=== PATIENT | female | born 1935 | race Caucasian/White ===

== ENCOUNTER 2017-03-25 21:19 | Inpatient (IN) | payer OTHER, MEDICAID ==
[~2017-03-25] VITALS: Ht 157.5 cm; Wt 64.0 kg
[~2017-03-25 21:19] MED LIST: ARTHRITIS PAIN650 M3 PO; BENAZEPRIL HCL40 MG PO; CARDIZEM CD120 MG PO; CEFUROXIME250 MG PO; CEFUROXIME500 MG PO; COREG25 MG PO; COUMADIN 2 MG TA2 M1 PO; D3 + K2 DOTS 11 EACH PO; DIFLUCAN200 MG PO; DUONEB 2.5-0.5 M3 ML INH; FLAGYL500 MG PO; FLORASTOR250 MG PO; HYDROCODONE-AP1 EAC6 PO; LEVSIN0.125 MG PO; LIDODERM1 EACH TRANSDERM; LISINOPRIL2.5 M1 PO; MOBIC15 MG PO; NYSTATIN PO; PACERONE200 MG PO; PLAVIX 75 MG TA75 M1 PO; PREDNISONE 10 M10 MG PO; PROTONIX40 M1 PO; TOPROL XL25 MG PO; VANCO1GM PO
[2017-03-25 21:27] VITALS: BP 155/87
[2017-03-25] MEDS ORDERED: CARTIA XT120 M1 PO (21:38)
[2017-03-25] MEDS ORDERED: HYDROCODON-ACE1 EAC7 PO (21:39)
[2017-03-25 21:53] LABS: ABSOLUTE BASOPHILS 0.1 thou/uL (0.0-0.2); ABSOLUTE EOSINOPHILS 0.1 thou/uL (0.0-0.7); ABSOLUTE LYMPHOCYTES 1.3 thou/uL (0.8-5.3); BASOPHILS 0.7 %; EOSINOPHILS 1.3 %
[2017-03-25 21:55] LABS: ABSOLUTE MONOCYTES 0.7 thou/uL (0.0-1.2); ABSOLUTE NEUTROPHILS 7.9 thou/uL (1.6-8.1); HEMATOCRIT 35.5 % (37.0-47.0); HEMOGLOBIN 11.5 gm/dL (12.0-15.0); LYMPHOCYTES 12.4 %; MCH 28.1 pg (26.0-34.0); MCHC 32.5 g/dL (28.0-37.0); MCV 86.3 fL (80.0-100.0); MONOCYTES 6.8 %; MPV 6.9 fl. (7.2-11.1); NUCLEATED RBCS 0 /100WBC; PLATELET COUNT* 594 thou/uL (150-400); POLYS 78.8 %; RBC 4.11 mil/uL (4.20-5.00); RDW-CV 14.5 % (10.5-14.5); WBC 10.1 thou/uL (4.0-11.0)
[2017-03-25 22:01] LABS: ANION GAP 3 mmol/L (7-16); BUN 18 mg/dL (7-18); CALCIUM 8.4 mg/dL (8.5-10.1); CHLORIDE 101 mmol/L (98-107); CO2 36 mmol/L (21-32); GLUCOSE 101 mg/dL (70-99); POTASSIUM 3.1 mmol/L (3.5-5.1); SODIUM 140 mmol/L (136-145)
[2017-03-25 22:09] LABS: ALBUMIN 2.1 g/dL (3.4-5.0); ALKALINE PHOSPHATASE 75 U/L (46-116); SGOT 29 U/L (15-37); SGPT 21 U/L (30-65); TOTAL BILIRUBIN 0.3 mg/dL (<0.1-1.0); TOTAL PROTEIN 6.4 g/dL (6.4-8.2); TROPONIN-I LEVEL <0.06 ng/mL (<0.06)
[2017-03-25 22:30] LABS: INR > 18.0; PROTIME > 210.1 Seconds (9.20-11.50)
[2017-03-25 23:24] LABS: INR > 18.0; PROTIME > 210.1 Seconds (9.20-11.50)
[2017-03-26 05:12] LABS: ABSOLUTE EOSINOPHILS 0.1 thou/uL (0.0-0.7); ABSOLUTE LYMPHOCYTES 1.3 thou/uL (0.8-5.3); ABSOLUTE MONOCYTES 0.5 thou/uL (0.0-1.2); BASOPHILS 0.5 %; EOSINOPHILS 1.3 %; HEMATOCRIT 30.8 % (37.0-47.0); LYMPHOCYTES 14.6 %; MCH 28.1 pg (26.0-34.0); MCHC 32.4 g/dL (28.0-37.0); MCV 86.7 fL (80.0-100.0); NUCLEATED RBCS 0 /100WBC; POLYS 77.6 %; RBC 3.55 mil/uL (4.20-5.00); RDW-CV 14.4 % (10.5-14.5)
[2017-03-26 05:15] LABS: URINE BILIRUBIN NEGATIVE (Negative); URINE BLOOD 2+ (Negative); URINE CLARITY CLEAR; URINE COLOR YELLOW; URINE GLUCOSE-RANDOM NEGATIVE (Negative); URINE KETONES NEGATIVE (Negative); URINE LEUKOCYTES-REFLEX TRACE (Negative); URINE NITRITE-REFLEX NEGATIVE (Negative); URINE PROTEIN NEGATIVE (Negative); URINE UROBILINOGEN 0.2 E.U./dl (0.2-1.0)
[2017-03-26 05:26] LABS: PLATELET COUNT* 486 thou/uL (150-400)
[2017-03-26 05:33] LABS: CALCIUM 8.2 mg/dL (8.5-10.1); CREATININE 0.8 mg/dL (0.6-1.3); POTASSIUM 3.5 mmol/L (3.5-5.1)
[2017-03-26 05:38] LABS: SQUAMOUS 0-3 Few /LPF (0-3)
[2017-03-26 05:39] LABS: BACTERIA-REFLEX >30 Many /HPF (None Seen); CASTS None Seen /LPF (None Seen); CRYSTALS None Seen /LPF (None Seen); MUCUS 0-3 Light strn/LPF (None Seen); URINE RBC 3-10 Few /HPF (0-2); URINE WBC-REFLEX 6-15 Few /HPF (0-5)
[2017-03-26 06:47] LABS: PROTIME 24.8 Seconds (9.20-11.50)
[2017-03-26 06:54] LABS: INR 2.6
[2017-03-26 07:38] VITALS: BP 156/71
[2017-03-26 07:45] VITALS: BP 156/71
[2017-03-26 11:14] VITALS: BP 141/70
[2017-03-26 17:00] VITALS: BP 138/79
[2017-03-27] VITALS: BP 151/76
[2017-03-27 04:00] VITALS: BP 152/84
[2017-03-27 10:24] VITALS: BP 150/94
[2017-03-27 14:20] LABS: ABSOLUTE BASOPHILS 0.1 thou/uL (0.0-0.2); ABSOLUTE EOSINOPHILS 0.1 thou/uL (0.0-0.7); ABSOLUTE LYMPHOCYTES 1.2 thou/uL (0.8-5.3); ABSOLUTE MONOCYTES 0.4 thou/uL (0.0-1.2); ABSOLUTE NEUTROPHILS 7.2 thou/uL (1.6-8.1); BASOPHILS 1.2 %; EOSINOPHILS 1.2 %; HEMOGLOBIN 10.8 gm/dL (12.0-15.0); LYMPHOCYTES 13.2 %; MCH 28.3 pg (26.0-34.0); MCHC 32.7 g/dL (28.0-37.0); MCV 86.6 fL (80.0-100.0); MONOCYTES 4.3 %; MPV 6.9 fl. (7.2-11.1); NUCLEATED RBCS 0 /100WBC; PLATELET COUNT* 520 thou/uL (150-400); POLYS 80.1 %; RBC 3.81 mil/uL (4.20-5.00)
[2017-03-27 14:29] LABS: CALCIUM 8.3 mg/dL (8.5-10.1); CREATININE 0.7 mg/dL (0.6-1.3); MAGNESIUM 1.8 mg/dL (1.8-2.4); POTASSIUM 3.7 mmol/L (3.5-5.1)
[2017-03-27 14:30] LABS: INR 1.3; PROTIME 12.7 Seconds (9.20-11.50)
[2017-03-27 14:38] LABS: % SATURATION 12 % (20-39); IRON 26 ug/dL (50-175)
[2017-03-27] MEDS ORDERED: CEFUROXIME250 MG PO (16:03)
[2017-03-27] MEDS ORDERED: ELIQUIS5 MG PO (16:03)
[2017-03-27] MEDS ORDERED: METAMUCIL PACK3.4 GM PO (16:05)
[2017-03-27 16:30] VITALS: BP 150/94
--- NOTE | 2017-03-28 19:34 | CON ---
[address] [address] CONSULTATION Name: JOY HINDS Room: [address] M.R.#: [id number] Admission: 03/26/17 Attend Phys: Raysa Saini MD Discharge: 03/27/17 Date of : 39 Report #: [id number] THIS REPORT FOR: //name// CC: Raysa Abrams DO DATE OF SERVICE: 03/27/2017 HISTORY OF PRESENT ILLNESS: The patient is an 82-year-old single white female who was last seen in the hospital today after she was noted to be over anticoagulated. The patient has a long history of hypertension. She presented in October 2016. She was at home when she had worsening shortness of breath, nausea. Because of increasing shortness of breath, paramedics were called. She was brought to [place] by ambulance. Her troponin was noted to be elevated. She was seen by my nurse practitioner, Emily Lakhani. She had no previous history of heart disease. During her hospitalization, she went into atrial tachycardia and was placed on amiodarone and anticoagulated with warfarin. During that hospitalization, she was found to have pyelonephritis with respiratory failure and pneumonia. She became encephalopathic, had renal failure, shock liver, hydronephrosis from a stone requiring a stent. She eventually was discharged and I actually saw her in the office in January. She is not very active because of her age, but continues to live by herself. Workup during her hospitalization included echocardiogram that showed normal left ventricular function. Nuclear stress test showed small area of lateral ischemia. It was recommended medical therapy. Since that time, she is unwell and continues to live by herself. She denied any recent chest pain, palpitations. Recently, she has felt weak. She thought she had some food poisoning. She vomited last week. She had several days of watery stools, but no bleeding. She has felt abdominal distention. Denied any anorexia. She denied recent chest pain, shortness of breath, syncope. She went to see her primary care doctor 2 days ago when INR was elevated. She was admitted for further evaluation and treatment. PAST MEDICAL HISTORY: Otherwise significant for breast surgery for cancer, hysterectomy, rectocele repair. She has a history of hypertension, hyperlipidemia. No history of diabetes. MEDICATIONS: On admission consisted of amiodarone, diltiazem, lisinopril, metoprolol, warfarin. ALLERGIES: She has a previous intolerance to MORPHINE. FAMILY HISTORY: Her grandmother had diabetes. SOCIAL HISTORY: She has been for years. Lives by herself in [place]. [place] [address] CONSULTATION Name: JOY HINDS Room: [address]#: [id number] Admission: 03/26/17 Attend Phys: Raysa Saini MD Discharge: 03/27/17 Date of : 39 Report #: [id number] REVIEW OF SYSTEMS: She has had a history of stroke. She had asthma as a child. No history of peptic ulcer disease, liver disease. She had breast cancer. She had a kidney stone. No psychiatric illness. PHYSICAL EXAMINATION: GENERAL: Revealed an elderly female lying in bed. She appeared in no distress. VITAL SIGNS: Blood pressure was 140/70, pulse 60. She is afebrile. HEENT: She was anicteric, conjunctiva pink. Mucous members moist. NECK: Veins nondistended. No carotid bruits. Neck was supple. CHEST: Clear to auscultation. CARDIOVASCULAR: Regular rate and rhythm. No significant murmur. ABDOMEN: Soft, nontender. EXTREMITIES: Had no edema. Dorsalis pedis pulse 1+ bilaterally. SKIN: Warm and dry. NEUROLOGIC: Nonfocal. LABORATORY DATA: Her ECG showed a sinus rhythm, first degree AV block. Her workup since she got admitted yesterday, she had lab work, sodium 141, glucose 88. Liver function studies are normal. Troponin 0.06. Her INR on Saturday was greater than 18, is now 2.6. White blood cell count 9.0, hemoglobin 10.0, which is unchanged from 10/2016. IMPRESSION AND RECOMMENDATIONS: 1. Over anticoagulation. I would hold warfarin until her INR is less than 3. At that time, I will continue anticoagulation, maintain an INR of 2-3. 2. History of atrial fibrillation. No clinical recurrences on amiodarone. The patient has a CHADs score of 2. 3. Hypertension. The patient is on multiple medications. 4. History of breast cancer. 5. Recent abdominal distention, nausea and vomiting. Suspect gastroenteritis. <ELECTRONICALLY SIGNED> By: Yovanny Hall MD, FACC 03/28/17 1934 1429 [id number] Hall MD, FACC /nt
== END 2017-03-27 20:40 | disposition home or self-care (01) | DRG 689 ==
LOC: M.ERS 21:19 → M.2W 03-26 00:39 → M.TBA-ER 03-26 00:39 → M.2W 03-26 16:24
PROVIDERS: Emergency Medicine; Internal Medicine; ADMIT Internal Medicine
DX: N39.0 Urinary tract infection, site not specified (principal); E43 Unspecified severe protein-calorie malnutrition; R65.10 Systemic inflammatory response syndrome (SIRS) of non-infectious origin without acute organ dysfunction; T45.515A Adverse effect of anticoagulants, initial encounter; J45.909 Unspecified asthma, uncomplicated; I48.91 Unspecified atrial fibrillation; I10 Essential (primary) hypertension; M54.9 Dorsalgia, unspecified; Z88.5 Allergy status to narcotic agent; Z88.1 Allergy status to other antibiotic agents; Z91.013 Allergy to seafood; Z90.710 Acquired absence of both cervix and uterus; Z85.3 Personal history of malignant neoplasm of breast; Z68.25 Body mass index [BMI] 25.0-25.9, adult

== ENCOUNTER → 2017-04-05 | Outpatient (CLI) | payer OTHER, MEDICAID ==
[~2017-04-05] MED LIST changes: +CARTIA XT120 M1 PO; +ELIQUIS5 MG PO; +HYDROCODON-ACE1 EAC7 PO; +METAMUCIL PACK3.4 GM PO; +NORCO 5-325 TA1 EACH PO
[2017-04-05 12:34] LABS: INR 1.2; PROTIME 11.5 Seconds (9.20-11.50)
== END ==
LOC: M.LAB 11:46
PROVIDERS: Internal Medicine Cardiovascular Disease
DX: I48.91 Unspecified atrial fibrillation (principal); L65.9 Nonscarring hair loss, unspecified; E87.6 Hypokalemia; Z79.899 Other long term (current) drug therapy

== ENCOUNTER → 2017-08-07 | Outpatient (CLI) | payer OTHER, MEDICAID ==
[2017-08-07 09:28] LABS: ALBUMIN 3.5 g/dL (3.4-5.0); DIRECT BILIRUBIN 0.2 mg/dL (<0.1-0.3); TOTAL BILIRUBIN 0.6 mg/dL (<0.1-1.0); TOTAL PROTEIN 7.4 g/dL (6.4-8.2)
== END ==
LOC: M.LAB 09:00
PROVIDERS: Internal Medicine Cardiovascular Disease
DX: Z12.31 Encounter for screening mammogram for malignant neoplasm of breast (principal); I48.0 Paroxysmal atrial fibrillation; K46.9 Unspecified abdominal hernia without obstruction or gangrene; Z79.899 Other long term (current) drug therapy

== ENCOUNTER 2017-11-05 18:46 | Emergency (ER) | payer OTHER, MEDICAID ==
[~2017-11-05] VITALS: Ht 157.5 cm; Wt 76.8 kg
[~2017-11-05 18:46] MED LIST changes: -NORCO 5-325 TA1 EACH PO
[2017-11-05 19:38] LABS: ABSOLUTE EOSINOPHILS 0.1 thou/uL (0.0-0.7); ABSOLUTE LYMPHOCYTES 1.3 thou/uL (0.8-5.3); ABSOLUTE MONOCYTES 0.4 thou/uL (0.0-1.2); BASOPHILS 0.8 %; EOSINOPHILS 2.3 %; HEMATOCRIT 37.4 % (37.0-47.0); HEMOGLOBIN 12.7 gm/dL (12.0-15.0); MCH 31.3 pg (26.0-34.0); MCHC 33.9 g/dL (28.0-37.0); MCV 92.2 fL (80.0-100.0); MONOCYTES 7.6 %; MPV 7.7 fl. (7.2-11.1); NUCLEATED RBCS 0 /100WBC; PLATELET COUNT* 216 thou/uL (150-400); POLYS 61.3 %; RBC 4.06 mil/uL (4.20-5.00); RDW-CV 14.6 % (10.5-14.5); WBC 4.8 thou/uL (4.0-11.0)
[2017-11-05 19:44] LABS: CALCIUM 8.3 mg/dL (8.5-10.1); POTASSIUM 3.5 mmol/L (3.5-5.1)
[2017-11-05 19:46] LABS: APTT 26.9 Seconds (25.0-31.3); INR 1.1; PROTIME 10.9 Seconds (9.20-11.50)
[2017-11-05] MEDS ORDERED: NORCO 5-325 TA1 EACH PO (21:16)
[2017-11-05 21:40] VITALS: BP 170/80
== END 2017-11-05 21:40 | disposition home or self-care (01) ==
LOC: M.ERS 18:46
PROVIDERS: Nurse Practitioner Family
DX: M94.0 Chondrocostal junction syndrome [Tietze] (principal); J45.909 Unspecified asthma, uncomplicated; I48.91 Unspecified atrial fibrillation; Z88.6 Allergy status to analgesic agent; Z88.1 Allergy status to other antibiotic agents; Z88.8 Allergy status to other drugs, medicaments and biological substances; Z91.013 Allergy to seafood; Z87.442 Personal history of urinary calculi; Z90.710 Acquired absence of both cervix and uterus

== ENCOUNTER → 2018-03-21 | Outpatient (CLI) | payer OTHER, MEDICAID ==
[~2018-03-21] MED LIST changes: +NORCO 5-325 TA1 EACH PO
[2018-03-21 09:58] LABS: ALBUMIN 3.3 g/dL (3.4-5.0); DIRECT BILIRUBIN 0.1 mg/dL (<0.1-0.3); TOTAL BILIRUBIN 0.4 mg/dL (<0.1-1.0); TOTAL PROTEIN 7.1 g/dL (6.4-8.2)
== END ==
LOC: M.LAB 09:22
PROVIDERS: Internal Medicine Cardiovascular Disease
DX: K44.9 Diaphragmatic hernia without obstruction or gangrene (principal); I48.2 Chronic atrial fibrillation; Z79.899 Other long term (current) drug therapy

== ENCOUNTER → 2018-07-25 | Outpatient (CLI) | payer OTHER, MEDICAID | LOC: M.MRI 12:56 | DX: S46.011A Strain of muscle(s) and tendon(s) of the rotator cuff of right shoulder, initial encounter (principal); S46.211A Strain of muscle, fascia and tendon of other parts of biceps, right arm, initial encounter; M19.011 Primary osteoarthritis, right shoulder; I48.91 Unspecified atrial fibrillation; I13.0 Hypertensive heart and chronic kidney disease with heart failure and stage 1 through stage 4 chronic kidney disease, or unspecified chronic kidney disease; I50.32 Chronic diastolic (congestive) heart failure; N18.9 Chronic kidney disease, unspecified; K21.9 Gastro-esophageal reflux disease without esophagitis; E78.5 Hyperlipidemia, unspecified; E03.9 Hypothyroidism, unspecified; M19.90 Unspecified osteoarthritis, unspecified site; M81.0 Age-related osteoporosis without current pathological fracture; Z88.5 Allergy status to narcotic agent; Z88.1 Allergy status to other antibiotic agents; Z91.013 Allergy to seafood; Z90.710 Acquired absence of both cervix and uterus; Z82.49 Family history of ischemic heart disease and other diseases of the circulatory system; Z82.3 Family history of stroke; W19.XXXA Unspecified fall, initial encounter; Y93.89 Activity, other specified; Y92.89 Other specified places as the place of occurrence of the external cause; Y99.8 Other external cause status ==

== ENCOUNTER 2018-08-06 17:16 | Emergency (ER) | payer OTHER, MEDICAID ==
[~2018-08-06] VITALS: Ht 157.5 cm; Wt 77.1 kg
[2018-08-06 17:42] LABS: ABSOLUTE EOSINOPHILS 0.1 thou/uL (0.0-0.7); ABSOLUTE LYMPHOCYTES 1.6 thou/uL (0.8-5.3); ABSOLUTE MONOCYTES 0.4 thou/uL (0.0-1.2); ABSOLUTE NEUTROPHILS 4.1 thou/uL (1.6-8.1); BASOPHILS 0.8 %; EOSINOPHILS 1.4 %; HEMOGLOBIN 13.6 gm/dL (12.0-15.0); LYMPHOCYTES 25.6 %; MCH 29.9 pg (26.0-34.0); MCHC 33.9 g/dL (28.0-37.0); MONOCYTES 6.4 %; MPV 7.4 fl. (7.2-11.1); NUCLEATED RBCS 0 /100WBC; PLATELET COUNT* 305 thou/uL (150-400); POLYS 65.8 %; RBC 4.54 mil/uL (4.20-5.00); RDW-CV 14.1 % (10.5-14.5); WBC 6.2 thou/uL (4.0-11.0)
[2018-08-06 17:49] LABS: CALCIUM 8.9 mg/dL (8.5-10.1); POTASSIUM 3.7 mmol/L (3.5-5.1)
[2018-08-06 17:52] LABS: APTT 29.5 Seconds (25.0-31.3); PROTIME 10.7 Seconds (9.20-11.50)
[2018-08-06 17:54] LABS: ALBUMIN 3.4 g/dL (3.4-5.0); TOTAL BILIRUBIN 0.4 mg/dL (<0.1-1.0); TOTAL PROTEIN 7.4 g/dL (6.4-8.2)
[2018-08-06 19:41] VITALS: BP 192/87
== END 2018-08-06 20:16 | disposition short-term general hospital (02) ==
LOC: M.ERS 17:16
PROVIDERS: Family Medicine
DX: R04.0 Epistaxis (principal); J45.909 Unspecified asthma, uncomplicated; I48.91 Unspecified atrial fibrillation; Z87.442 Personal history of urinary calculi; Z90.710 Acquired absence of both cervix and uterus; Z88.5 Allergy status to narcotic agent; Z88.8 Allergy status to other drugs, medicaments and biological substances; Z91.013 Allergy to seafood

== ENCOUNTER → 2018-10-30 | Outpatient (CLI) | payer OTHER, MEDICAID | LOC: M.RAD 10-08 10:11 | DX: Z12.31 Encounter for screening mammogram for malignant neoplasm of breast (principal); Z13.820 Encounter for screening for osteoporosis ==

== ENCOUNTER → 2019-07-20 | Outpatient (CLI) | payer OTHER, MEDICAID | LOC: M.RAD 12:40 | DX: N63.0 Unspecified lump in unspecified breast (principal); N64.4 Mastodynia ==

== ENCOUNTER → 2019-10-29 | Outpatient (CLI) | payer OTHER, MEDICAID | LOC: M.RAD 14:17 | PROVIDERS: ATTEND Internal Medicine Cardiovascular Disease | DX: J98.4 Other disorders of lung (principal); I51.7 Cardiomegaly; I48.0 Paroxysmal atrial fibrillation ==

== ENCOUNTER 2019-11-13 09:52 | Emergency (ER) | payer OTHER, MEDICAID ==
[~2019-11-13] VITALS: Ht 167.6 cm; Wt 79.4 kg
[2019-11-13 10:31] LABS: HEMATOCRIT 45.3 % (37.0-47.0); HEMOGLOBIN 15.5 gm/dL (12.0-15.0); MCH 31.6 pg (26.0-34.0); MCHC 34.2 g/dL (28.0-37.0); MCV 92.6 fL (80.0-100.0); MPV 7.5 fl. (7.2-11.1); NUCLEATED RBCS 0 /100WBC; PLATELET COUNT* 234 thou/uL (150-400); RBC 4.89 mil/uL (4.20-5.00); RDW-CV 13.6 % (10.5-14.5); WBC 10.1 thou/uL (4.0-11.0)
[2019-11-13 10:38] LABS: CALCIUM 8.7 mg/dL (8.5-10.1); POTASSIUM 3.2 mmol/L (3.5-5.1)
[2019-11-13 10:43] LABS: ALBUMIN 3.9 g/dL (3.4-5.0); TOTAL BILIRUBIN 0.6 mg/dL (<0.1-1.0); TOTAL PROTEIN 7.5 g/dL (6.4-8.2)
[2019-11-13 10:50] LABS: ABSOLUTE LYMPHOCYTES 0.6 thou/uL (0.8-5.3); ABSOLUTE MONOCYTES 0.6 thou/uL (0.0-1.2); ABSOLUTE NEUTROPHILS 8.9 thou/uL (1.6-8.1); PLATELET ESTIMATE ADEQUATE
[2019-11-13 10:52] LABS: APTT 24.7 Seconds (25.0-31.3); INR 1.1; PROTIME 11.4 Seconds (9.20-11.50)
[2019-11-13 11:05] VITALS: BP 129/50
--- NOTE | 2019-11-13 16:15 | EKG ---
[place] [address] ELECTROCARDIOGRAM REPORT Name: JOY HINDS Room: [facility]#: [id number] Admission: 11/13/19 Attend Phys: Discharge: 11/13/19 Date of : 39 Date of Service: 11/13/19 1035 Report #: [id number] THIS REPORT FOR: //name// [facility] ED Test Date: 2019-11-13 Test Time: 10:35:20 Pat Name: JOY HINDS Department: Room: Gender: Kindergarten Teacher Assistant: ANTONY : 1935 Requested By: Ramesy Robertson Order Number: [id number] MD: Yusuf Gonzalez Measurements Intervals [place] Rate: 66 P: 13 [place]: 197 QRS: -5 QRSD: 97 T: -5 QT: 438 QTc: 459 Interpretive Statements Sinus rhythm Inferior infarct, age indeterminate Compared to ECG 11/16/2016 08:30:51 Prolonged QT interval no longer present Myocardial infarct finding still present Electronically Signed On 11-13-2019 16:15:09 CDT by Yusuf Gonzalez [email or web address] <ELECTRONICALLY SIGNED> By: Yusuf Gonzalez MD, FACC 11/13/19 1615 1035 1035 Yusuf Gonzalez MD, [facility] /EPI
== END 2019-11-13 11:05 | disposition short-term general hospital (02) ==
LOC: M.ERS 09:52
PROVIDERS: Family Medicine
DX: I62.9 Nontraumatic intracranial hemorrhage, unspecified (principal); I10 Essential (primary) hypertension; J45.909 Unspecified asthma, uncomplicated; I48.91 Unspecified atrial fibrillation; Z88.5 Allergy status to narcotic agent; Z88.1 Allergy status to other antibiotic agents; Z91.013 Allergy to seafood; Z79.899 Other long term (current) drug therapy; Z87.442 Personal history of urinary calculi